=== PATIENT | female | born 1950 | race Caucasian/White ===

== ENCOUNTER → 2020-12-16 | Emergency (ER) | payer OTHER ==
[~2020-12-16] VITALS: Ht 167.6 cm; Wt 62.1 kg
[~2020-12-16] MED LIST: HYDR-3972 PO
--- NOTE | 2020-12-16 20:05 | NUR ---
EMT AT BEDSIDE FOR SPLINT
--- NOTE | 2020-12-16 20:07 | NUR ---
VOLAR SPLINT APPLIED
--- NOTE | 2020-12-16 20:21 | NUR ---
Patient discharged to home in stable condition. Written and verbal after care instructions given. Patient verbalizes understanding of instruction and RX. Pt told to follow up with an Ortho. Ambulated out of ED. Picked up by .
[2020-12-16 20:33] VITALS: BP 111/76
== END | disposition home or self-care (01) ==
LOC: ER 18:41
DX: S52.572A Other intraarticular fracture of lower end of left radius, initial encounter for closed fracture (principal); S52.612A Displaced fracture of left ulna styloid process, initial encounter for closed fracture; S30.0XXA Contusion of lower back and pelvis, initial encounter; W18.2XXA Fall in (into) shower or empty bathtub, initial encounter; Y93.89 Activity, other specified; Y92.89 Other specified places as the place of occurrence of the external cause; Y99.8 Other external cause status
CPT/HCPCS: 72220-TC; 73110